=== PATIENT | male | born 1975 | race Caucasian/White ===

== ENCOUNTER 2020-12-03 12:30 | Outpatient (CLI) | payer OTHER, SELFPAY | END 2020-12-03 12:31 | disposition home or self-care (01) | LOC: SLEEP 12-05 09:43 | PROVIDERS: Family Provider Nurse Practitioner Family; PCP Nurse Practitioner Family; Visit Provider Nurse Practitioner Family | DX: R37 Sexual dysfunction, unspecified (principal); R41.3 Other amnesia; G47.9 Sleep disorder, unspecified; R53.83 Other fatigue | CPT/HCPCS: G0399 ==

== ENCOUNTER → 2021-01-29 09:09 | Outpatient (BNVA) | payer OTHER, SELFPAY | PROVIDERS: Family Provider Nurse Practitioner Family; PCP Nurse Practitioner Family; Visit Provider Urology | DX: N52.9 Male erectile dysfunction, unspecified (principal); R37 Sexual dysfunction, unspecified; N50.819 Testicular pain, unspecified | CPT/HCPCS: 81003 ==

== ENCOUNTER → 2022-12-03 11:38 | Outpatient (BNVA) | payer OTHER, SELFPAY | PROVIDERS: Family Provider Nurse Practitioner Family; PCP Clinical Nurse Specialist Adult Health; Visit Provider Clinical Nurse Specialist Adult Health | DX: I10 Essential (primary) hypertension (principal) | CPT/HCPCS: 80053; 80061; 85025 ==

== ENCOUNTER 2024-04-05 12:11 | Outpatient (CLI) | payer SELFPAY | END 2024-04-05 12:12 | disposition home or self-care (01) | LOC: SLEEP 04-06 13:22 | PROVIDERS: Family Provider Nurse Practitioner Family; PCP Clinical Nurse Specialist Adult Health; Visit Provider Clinical Nurse Specialist Adult Health | DX: N40.0 Benign prostatic hyperplasia without lower urinary tract symptoms (principal); E78.5 Hyperlipidemia, unspecified | CPT/HCPCS: 80053; 80061; 84153 ==

== ENCOUNTER → 2025-04-10 12:04 | Outpatient (BNVA) | payer OTHER, SELFPAY | PROVIDERS: PCP Clinical Nurse Specialist Adult Health; Visit Provider Clinical Nurse Specialist Adult Health | DX: N40.0 Benign prostatic hyperplasia without lower urinary tract symptoms (principal); E78.2 Mixed hyperlipidemia; I10 Essential (primary) hypertension; F32.1 Major depressive disorder, single episode, moderate | CPT/HCPCS: 80053; 80061; 84153; 85025 ==

== ENCOUNTER 2025-04-17 09:55 | Outpatient (CLI) | payer OTHER, SELFPAY ==
--- NOTE | 2025-04-17 10:00 | CT_ITS ---
WS: [id number] LDCT LUNG CANCER SCREENING HISTORY: Z87.891 - Personal history of nicotine dependence TECHNIQUE: Axial imaging performed from the apices to 1 cm below the costophrenic angles. Coronal and sagittal reformats are submitted with axial MIP series. All CT scans at [facility] use at least one of these dose optimization techniques: automated exposure control; mA and/or kV adjustment per patient size (includes targeted exams where dose is matched to clinical indication); or iterative reconstruction. DLP: 136.51 mGy.cm DIvol: Mean CTDIvol: 3.40 (mGy) COMPARISON: None available. Diagnostic quality: Satisfactory Lungs: Thin linear scar LEFT lower lobe. Mild dependent changes at the lung bases. No pulmonary mass or nodule. No endobronchial lesions. Heart: Normal size heart with no pericardial effusion.. Other findings: Normal size aorta. Normal pulmonary artery. No adenopathy. Small hiatal hernia. Hepatic steatosis. Diffuse fatty replacement of the visualized pancreas. CT/CT lung screening 86200 IMPRESSION: LUNG-RADS: 1-Negative FOLLOW UP: 12 Month: Continue annual screening with LDCT OTHER FINDINGS (S MODIFIER): None.
== END 2025-04-17 09:56 | disposition home or self-care (01) ==
LOC: RAD 09:57
PROVIDERS: PCP Clinical Nurse Specialist Adult Health; Visit Provider Clinical Nurse Specialist Adult Health
DX: Z87.891 Personal history of nicotine dependence (principal); G47.34 Idiopathic sleep related nonobstructive alveolar hypoventilation
CPT/HCPCS: 71271

== ENCOUNTER 2025-04-26 08:12 | Outpatient (CLI) | payer OTHER, SELFPAY ==
[2025-04-26 08:26] VITALS: PULSE 74; RESP 18; O2SAT 96
== END 2025-04-26 08:13 | disposition home or self-care (01) ==
PROVIDERS: PCP Clinical Nurse Specialist Adult Health; Visit Provider Clinical Nurse Specialist Adult Health
DX: G47.33 Obstructive sleep apnea (adult) (pediatric) (principal); G47.34 Idiopathic sleep related nonobstructive alveolar hypoventilation; Z87.891 Personal history of nicotine dependence
CPT/HCPCS: 94060; J7613

== ENCOUNTER 2025-06-13 06:35 | Day surgery (SDC) | payer OTHER, SELFPAY ==
[2025-06-13 06:49] VITALS: BP 160/100; PULSE 84; RESP 18; TEMP 35.8; O2SAT 98
--- NOTE | 2025-06-13 07:09 | W.PM.OPSFHP ---
Same Day Surgery H&P Indication for Procedure/HPI DATE OF PROCEDURE: June 13, 2025 CHIEF COMPLAINT/INDICATIONFOR SURGICAL PROCEDURE: Screening colonoscopy PREOP DIAGNOSIS: Screening colonoscopy PLANNED PROCEDURE: Operation Date: 06/13/25 07:30 Proposed Procedures p Colonoscopy [id number] G0121 Z12.11(Not Applicable) - Cooper Gandara MD Medications/Allergies* Home Medications ?Medication ?Instructions ?Recorded ?Confirmed ?Type atorvastatin 10 mg tablet 10 mg PO DAILY 06/08/25 06/08/25 History fluoxetine 40 mg capsule 40 mg PO DAILY 06/08/25 06/08/25 History geriatric multivitamin-min 1 tab PO DAILY 06/08/25 06/08/25 History omega-3 fatty acids 1,000 mg PO DAILY 06/08/25 06/08/25 History Allergies/Adverse Reactions Allergy/AdvReac Type Severity Reaction Status Date / Time No Known Allergies Allergy Verified 06/08/25 14:24 Current Medications: Generic Name Dose Route Start Last Admin Trade Name Freq PRN Reason Stop Dose Admin Sodium Chloride 1,000 mls @ 15 mls/hr 06/13/25 06:42 06/13/25 06:57 Sodium Chloride 0.9% IV 06/14/25 06:41 15 mls/hr .Q24H PRN Administration COLONOSCOPY FLUIDS Pertinent History/Comorbid Conditions* Medical History (Updated 04/13/25 @ 16:35 by Brent Schmitz NP) Nocturnal hypoxemia Diverticulosis needs colonoscopy at age 49. Hepatic steatosis Kidney stone on left side Enlarged prostate check PSA and refer to urology Essential hypertension Current moderate episode of major depressive disorder without prior episode ALYCE (obstructive sleep apnea) compliant with CPAP Mixed hyperlipidemia Sexual dysfunction Surgical History (Updated 01/30/21 @ 07:47 by Dejuan Morales MD) History of vasectomy Family History (Updated 12/19/20 @ 14:57 by Lakisha Cárdenas RN) Diabetes CAD (coronary artery disease) Cancer Stroke Denies family history of Hypertension Social History Smoking and tobacco/nicotine status: former use of tobacco/nicotine Quit status (tobacco/nicotine): has quit using Former quit date comment: quit 2015 Alcohol intake: current Alcohol intake frequency: few times a week Substance/Drug Use: current Substance/Drug use frequency: few times a week Marital status: Current occupational status: employed Pertinent Exam Findings alert, oriented x 3, clear to auscultation bilaterally, regular rate & rhythm and procedure specific exam findings Abdomen soft, nontender, nondistended Recommendations Risks and benefits of procedure reviewed and Patient/family agree to proceed Surgery/Procedure today Other Plans: I have explained the risks and benefits of a screening colonoscopy and the patient agrees to proceed. Patient is average for colon cancer. Patient understands that hemoccult is an alternative and still decides to proceed with colonoscopy. Had an extensive discussion with the patient. Answered all questions. Patient understands that the risks include a 1% risk of iatrogenic perforation and risk of aspiration. Coding Level of Care Code Acute Code for Chg Fwd
--- NOTE | 2025-06-13 07:09 | ANES.PREANE2 ---
Pre-Anesthetic Assessment Height/Weight: Height 1.93 m Temp Pulse Resp BP Pulse Ox O2 Del Method 96.4 F L 84 18 160/100 98 Room Air 06/13/25 06:49 06/13/25 06:49 06/13/25 06:49 06/13/25 06:49 06/13/25 06:49 06/13/25 06:49 Preop Diagnosis: Screening colonoscopy Operation Date: 06/13/25 07:30 Proposed Procedures p Colonoscopy [id number] G0121 Z12.11(Not Applicable) - Cooper Gandara MD Familial anesthetic complications: none Was Beta Sudhakar taken within 24 hours: N/A Was Clonidine taken within 24 hours: N/A Last intake: Intake Last Liquid Date 06/12/25 Last Liquid Time 22:00 Last Solid Date 06/11/25 Last Solid Time 18:30 Social No alcohol and No tobacco Exam alert, oriented x 3, clear to auscultation bilaterally and regular rate & rhythm CV/HEM Hypertension Metabolic Hyperlipidemia and Morbid Obesity Anesthetic Plan ASA status: 3 Anesthesia: MAC Risk of > 500 ml blood loss (7ml/kg in children): No Medications/Allergies Home Medications ?Medication ?Instructions ?Recorded ?Confirmed ?Last Taken ?Type finasteride 5 mg tablet 5 mg PO DAILY #30 tabs 04/10/25 06/08/25 06/12/25 Rx fluoxetine 20 mg capsule 20 mg PO DAILY #90 caps 04/10/25 06/08/25 06/12/25 Rx losartan 50 mg tablet 50 mg PO DAILY #30 tabs 04/10/25 06/08/25 06/12/25 Rx tamsulosin 0.4 mg capsule 0.4 mg PO DAILY #30 caps 04/10/25 06/08/25 06/12/25 Rx atorvastatin 10 mg tablet 10 mg PO DAILY 06/08/25 06/08/25 06/12/25 History fluoxetine 40 mg capsule 40 mg PO DAILY 06/08/25 06/08/25 06/12/25 History geriatric multivitamin-min 1 tab PO DAILY 06/08/25 06/08/25 06/12/25 History omega-3 fatty acids 1,000 mg PO DAILY 06/08/25 06/08/25 06/12/25 History Allergies Allergy/AdvReac Type Severity Reaction Status Date / Time No Known Allergies Allergy Verified 06/08/25 14:24 Current Medications Generic Name Dose Route Start Last Admin Trade Name Freq PRN Reason Stop Dose Admin Sodium Chloride 1,000 mls @ 15 mls/hr 06/13/25 06:42 06/13/25 06:57 Sodium Chloride 0.9% IV 06/14/25 06:41 15 mls/hr .Q24H PRN Administration COLONOSCOPY FLUIDS PFSH Anesthesia Medical History Nocturnal hypoxemia Diverticulosis needs colonoscopy at age 49. Hepatic steatosis Kidney stone on left side Enlarged prostate check PSA and refer to urology Essential hypertension Current moderate episode of major depressive disorder without prior episode ALYCE (obstructive sleep apnea) compliant with CPAP Mixed hyperlipidemia Sexual dysfunction Surgical History History of vasectomy Family History Other CAD (coronary artery disease) Cancer Diabetes Stroke Denies family history of Hypertension Social History Smoking and tobacco/nicotine status: former use of tobacco/nicotine Quit status (tobacco/nicotine): has quit using Former quit date comment: quit 2015 Alcohol intake: current Alcohol intake frequency: few times a week Substance/Drug Use: current Substance/Drug use frequency: few times a week Marital status: Current occupational status: employed
[2025-06-13 07:52] VITALS: BP 116/67; PULSE 76; RESP 16; TEMP 36.1; O2SAT 92
[2025-06-13 08:02] VITALS: BP 120/84; PULSE 74; RESP 17; O2SAT 94
[2025-06-13 08:10] VITALS: BP 121/83; PULSE 73; RESP 17; O2SAT 94
--- NOTE | 2025-06-13 08:25 | ANE.PACU2 ---
Inpatient post-anesthesia follow up: Airway intact: Yes Vital signs: Temperature 97.0 F Pulse Rate 73 Respiratory Rate 17 Blood Pressure 121/83 Pulse Oximetry 94 Oxygen Delivery Me thod Room Air Oxygen Flow Rate Fraction of Inspir ed Oxygen Hydration adequate: Yes Nausea and vomiting: No Pain level: 1 Mental status: Baseline
== END 2025-06-13 08:26 | disposition home or self-care (01) ==
PROVIDERS: PCP Clinical Nurse Specialist Adult Health; Visit Provider Student in an Organized Health Care Education/Training Program
PROC: 0DJD8ZZ Inspection of Lower Intestinal Tract, Via Natural or Artificial Opening Endoscopic (ICD-10-PCS; CPT 45378; principal; 2025-06-13 07:30)
DX: Z12.11 Encounter for screening for malignant neoplasm of colon (principal); K57.30 Diverticulosis of large intestine without perforation or abscess without bleeding; D12.5 Benign neoplasm of sigmoid colon; I10 Essential (primary) hypertension; G47.33 Obstructive sleep apnea (adult) (pediatric); Z99.89 Dependence on other enabling machines and devices; E78.2 Mixed hyperlipidemia; Z87.891 Personal history of nicotine dependence; E66.01 Morbid (severe) obesity due to excess calories
CPT/HCPCS: 45385; 88305; J2704; J7030

== ENCOUNTER 2025-07-31 20:06 | Outpatient (CLI) | payer OTHER, SELFPAY | END 2025-07-31 20:07 | disposition home or self-care (01) | LOC: SLEEP 20:06 | PROVIDERS: PCP Clinical Nurse Specialist Adult Health; Referring Provider Clinical Nurse Specialist Adult Health; Visit Provider Internal Medicine Pulmonary Disease | DX: G47.33 Obstructive sleep apnea (adult) (pediatric) (principal) | CPT/HCPCS: 95811 ==